=== PATIENT | male | born 1950 | race Caucasian/White ===

== ENCOUNTER 2018-10-01 02:08 | Inpatient (IN) | payer OTHER ==
[~2018-10-01] VITALS: Ht 195.6 cm; Wt 102.5 kg
[2018-10-01] VITALS (7 sets, daily range): BP systolic 115–161; BP diastolic 76–93
--- NOTE | ~2018-10-01 | O ---
[facility] [address] [place] [address] OPERATIVE REPORT Name: ANTWAN SERRANO Room #: 247-P ADM IN M.R.#: [id number] Admission: 10/01/18 ������������������ Attend Phys: Forrest Valdes MD Discharge: ������������������ Date of : 54 Report #: [id number] THIS REPORT FOR: //name// CC: Brijesh Valdes DATE OF SERVICE: 10/03/2018 PREOPERATIVE DIAGNOSIS: Coronary artery disease. POSTOPERATIVE DIAGNOSIS: Coronary artery disease. OPERATION: Coronary artery bypass x 3 including left internal mammary artery to left anterior descending artery, saphenous vein to ramus intermedius, and saphenous vein to posterior descending artery (distal branch of circumflex) and endoscopic harvest, left greater saphenous vein. SURGEON: Toby Olguin M.D. FLOW FLOOR ATTENDANT: TYRESE Saenz. ANESTHESIA: General. INDICATIONS: The patient is a 67-year-old with unstable angina. The patient has a history of stent placement in the left anterior descending. The current catheterization shows restenosis with a tight ostial LAD lesion. There is also moderate stenosis in the mid circumflex and the circumflex is left dominant. The ramus intermedius has an ostial lesion in it as well that appears significant. Left ventricular function is reduced with apical and anterior akinesis. This may be related to stunned myocardium. In some of the views, the flow through the LAD is ZAK 2. FINDINGS AND TECHNIQUE: After general anesthesia was established, left greater saphenous vein was harvested using an endoscopic approach and prepared for use as a conduit. Exposure was obtained through median sternotomy. Left internal mammary artery was harvested from chest wall. Pericardial well was made. Cannulation sutures were placed. Heparin was given. Aorta was cannulated. Right atrium was cannulated. Cardioplegia needle was positioned in the aortic root. Retrograde cardioplegic catheter was placed in coronary sinus. Cardiopulmonary bypass was established. Aorta was cross-clamped, antegrade, then retrograde, cardioplegia were given. Ice was poured into the pericardial well. The heart was stopped. During electromechanical arrest, the distal anastomoses were performed and [facility] [address] [place] [address] OPERATIVE REPORT Name: ANTWAN SERRANO Room #: 247-P ADM IN M.R.#: [id number] Admission: 10/01/18 ������������������ Attend Phys: Forrest Valdes MD Discharge: ������������������ Date of : 54 Report #: [id number] end-to-side anastomosis was made between vein and the posterior descending artery. This was a distal branch of the left dominant circumflex. This was a 1.6 mm vessel. Cold cardioplegia was given. Separate segment of vein was sewn in end-to-side fashion to the ramus intermedius. This was an intramyocardial vessel that measured 1.5 mm. Cold cardioplegia was given. Left internal mammary artery was sewn in end-to-side fashion to the left anterior descending artery. Patency of this vessel was checked with the temperature technique. Cold cardioplegia was given. Two proximal anastomoses were performed. When these were complete, warm retrograde cardioplegia was given followed by warm continuous blood through the coronary sinus. When this infusion was complete, the cross-clamp was removed, de-airing maneuvers were performed. The anastomoses were inspected and found to be satisfactory. As the patient warmed, nice cardiac activity resumed. Chest tubes and pacing wires were placed. A marker was placed around the proximal anastomoses. When the patient was warmed, he was weaned from cardiopulmonary bypass. Venous cannula was removed. Protamine was given. The aortic cannula was removed. When hemostasis was satisfactory, the chest was closed in the usual fashion. The patient was taken to the intensive care unit in satisfactory condition. All counts were reported as correct. ��������������������������������������������� ���������������������������������������� By: ��������������������������������������������� 1445 1905 Toby Olguin MD /nt
[~2018-10-01 02:08] MED LIST: ADULT LOW DOSE81 MG PO; HYDROCHLOROTH12.5 MG PO; LIPITOR40 MG PO; NIASPAN ER 101000 M1 PO; TOPROL XL50 MG PO
[2018-10-01 02:25] LABS: ABSOLUTE NEUTROPHILS 6.2 thou/uL (1.4-8.2); BASOPHILS 0.7 % (0.0-2.0); EOSINOPHILS 2.5 % (0.0-3.0); HEMATOCRIT 40.6 % (42.0-52.0); HEMOGLOBIN 14.1 gm/dL (14.0-18.0); LYMPHOCYTES 39.1 % (24.0-44.0); MCH 30.2 pg (26.0-34.0); MCHC 34.6 g/dL (28.0-37.0); MCV 87.4 fL (80.0-100.0); PLATELET COUNT 228 thou/uL (150-400); POLYS 48.7 % (36.0-66.0); RBC 4.65 mil/uL (4.50-6.00); RDW 12.9 % (10.5-14.5); WBC 12.8 thou/uL (4.0-11.0)
[2018-10-01] MEDS ORDERED: LOSARTAN-HCTZ1 EACH PO (02:28)
[2018-10-01] MEDS ORDERED: PRADAXA150 MG PO (02:29)
[2018-10-01] MEDS ORDERED: RANEXA500 MG PO (02:29)
[2018-10-01] MEDS ORDERED: MULTAQ 400 MG400 MG PO (02:30)
[2018-10-01 02:31] LABS: ANION GAP 9 mmol/L (7-16); BUN 16 mg/dL (7-18); CALCIUM 8.1 mg/dL (8.5-10.1); CHLORIDE 106 mmol/L (98-107); CO2 24 mmol/L (21-32); CREATININE 0.9 mg/dL (0.7-1.3); GLUCOSE 195 mg/dL (74-106); POTASSIUM 3.3 mmol/L (3.5-5.1); SODIUM 139 mmol/L (136-145)
[2018-10-01 02:39] LABS: APTT 34.2 Seconds (24.5-32.8); INR 1.1; PROTIME 11.4 Seconds (9.3-11.4)
[2018-10-01 02:40] LABS: ALBUMIN 3.7 g/dL (3.4-5.0); MAGNESIUM 1.4 mg/dL (1.8-2.4); SGOT 14 U/L (15-37); SGPT 26 U/L (30-65); TOTAL BILIRUBIN 0.5 mg/dL (<0.1-1.0); TOTAL PROTEIN 6.3 g/dL (6.4-8.2); TROPONIN-I <0.06 ng/mL (<0.06)
--- NOTE | 2018-10-01 06:24 | NUR ---
PT ARRRIVED FROM ER TO UNIT AROUND 0508, VSS. PT A&OX4, ACCOMPANIED BY HIS . PT IS STABLE REPORTED HX OF VERITIGO AND RECENT TROUBLE STAYING ASLEEP. PT DENIES CHEST PAIN AT THIS TIME, PT IS SA ON THE MONITOR WITH HR IN THE 70s. IV FLUIDS CURRENTLY RUNNING AND POTASSIUM REPLACED ORDERED. WILL CONTINUE TO MONITOR
--- NOTE | 2018-10-01 08:08 | EKG ---
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: [employer] : 1950 Requested By: Blaine Koch Order Number: [id number] MD: Santiago Shetty Measurements Intervals [place] Rate: 78 P: GA: QRS: 71 QRSD: 115 T: 37 QT: 407 QTc: 464 Interpretive Statements Atrial fibrillation Compared to ECG 09/02/2011 01:16:24 Heart rate has slowed ST (T wave) deviation no longer present Electronically Signed On 10-01-2018 8:08:36 CDT by Santiago Shetty [email or web address] ��������������������������������������������� <ELECTRONICALLY SIGNED> ���������������������������������������� By: Santiago Shetty MD, [facility] ��������������������������������������������� 10/01/18 0808 0 0 Santiago Shetty MD, FAC /EPI
--- NOTE | 2018-10-01 09:41 | 2DMMODE ---
[facility] [address] [place] [address] 2 D/M-MODE ECHOCARDIOGRAM Name: ANTWAN SERRANO Room #: 218-P ADM IN M.R.#: [id number] ������������� Admission: 10/01/18 ������������� Attend Phys: Forrest Valdes MD Discharge: ��� ������������� ��� Date of : 54 Date of Service: 10/01/18 0941 �� Report #: [id number] �������� ��������������������������������������������[id number] THIS REPORT FOR: //name// APPROVED REPORT Study performed: 10/01/2018 08:49:58 EXAM: Comprehensive 2D, Doppler, and color-flow Echocardiogram Patient Location: Echo lab Room #: 218 Status: routine BSA: 2.32 HR: 80 bpm BP: 149/77 mmHg Rhythm: Atrial Fibrillation Other Information Study Quality: Good Risk Factors: Cardiac Risk Factors: Hyperlipidemia Indications Diabetes Atrial Fibrillation CAD Hypertension/HDD 2D Dimensions RVDd: 33.81 mm IVSd: 10.83 (7-11mm) LVOT Diam: 20.76 (18-24mm) LVDd: 47.38 mm PWd: 11.17 (7-11mm) Ascending Ao: 30.69 (22-36mm) LVDs: 29.27 (25-40mm) Aortic Root: 35.78 mm IVC: 26.00 mm Volumes Left Atrial Volume (Systole) Single Plane 4CH: 62.34 mL Single Plane 2CH: 55.59 mL LA ESV Index: 30.00 mL/m2 Aortic Valve AoV Peak Jaydon.: 0.99 m/s AO Peak Gr.: 3.95 mmHg LVOT Max P.96 mmHg LVOT Max V: 0.86 m/s [facility] [email or web address] [address] 2 D/M-MODE [facility]OCARDIOGRAM [facility] Room #: 218-P ADM IN [place].#: [id number] ������������� Admission: 10/01/18 ������������� Attend Phys: Forrest Valdes MD Discharge: ��� ������������� ��� Date of : 54 Date of Service: 10/01/18 0941 �� Report #: [id number] �������� ��������������������������������������������[id number] THADDEUS Vmax: 2.93 cm2 Pulmonary Valve PV Peak Jaydon.: 0.96 m/s PV Peak Gr.: 3.79 mmHg Tricuspid Valve TR Peak Jaydon.: 2.64 m/s TR Peak Gr.: 27.95 mmHg PA Pressure: 38.00 mmHg Left Ventricle The left ventricle is normal size. There is hypokinesis in the apical wall. There is normal left ventricular wall thickness. Left ventricular systolic function is mildly decreased. LVEF is 45%. This study is not technically sufficient to allow evaluation of the LV diastolic function due to atrial fibrillation. Right Ventricle The right ventricle is normal size. The right ventricular systolic function is normal. Atria Left atrium is at the upper limits of normal. Right atrium is dilated. Aortic Valve The aortic valve is normal in structure. No aortic regurgitation is present. There is no aortic valvular stenosis. Mitral Valve The mitral valve is normal in structure. Mild mitral regurgitation. No evidence of mitral valve stenosis. Tricuspid Valve The tricuspid valve is normal in structure. There is mild tricuspid regurgitation. Estimated PAP 38 mmHg. There is mild pulmonary hypertension. Pulmonic Valve The pulmonary valve is normal in structure. Trace pulmonic regurgitation. Great Vessels The aortic root is normal in size. IVC is dilated and collapses <50% with inspiration. [facility] [email or web address] [address] 2 D/M-MODE ECHOCARDIOGRAM Name: [facility] Room #: 218-P ADM IN M.R.#: [id number] ������������� Admission: 10/01/18 ������������� Attend Phys: Forrest Valdes MD Discharge: ��� ������������� ��� Date of : 54 Date of Service: 10/01/18940 �� Report #: [id number] �������� ��������������������������������������������[id number] Pericardium There is no pericardial effusion. <Conclusion> The left ventricle is normal size. There is normal left ventricular wall thickness. Left ventricular systolic function is mildly decreased. LVEF is 45%. There is hypokinesis in the apical wall. The right ventricle is normal size. Left atrium is at the upper limits of normal. The aortic valve is normal in structure. Mild mitral regurgitation. There is mild tricuspid regurgitation. Estimated PAP 38 mmHg. ��������������������������������������������� <ELECTRONICALLY SIGNED> ���������������������������������������� By: Keon Lara MD ��������������������������������������������� 10/01/18940 0 0 Keon Lara MD /LELA
--- NOTE | 2018-10-01 13:19 | NUR ---
ASSESSMENT DOCUMENTED. VSS. CRITICAL TROP LEVELS CALLED TO DR. CLARKE TO HAVE CARDIAC CATH TOMORROW R/T PRADAXA. NO PAIN/CHEST PAIN REPORTED BY PT. PT RESTING IN BED WITH CALL LIGHT IN REACH. WILL CONTINUE TO MONITOR.
--- NOTE | 2018-10-01 15:35 | NUR ---
patient admits with chest pain. Chart reviewed sp with nursing. 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 Patient with at bedside. 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 Patient has health insurance. Casemgt following for dc planning.
--- NOTE | 2018-10-02 04:24 | NUR ---
ASSUMED PT CARE AT 1900. VSS. PT A&OX4 NO COMPLAINTS OF PAIN OR ANY KIND OF DISCOMFORT. PT REQUESTED FOR AN ATIVAN THIS NIGHT HE WAS HAVING TROUBLE SLEEPING. HE STATED THAT HE USES THIS MED ONLY A COUPLE TIMES A MONTH FOR SLEEP. PT RESTED WELL FOR THE REST OF THE NIGHT, HE HAS BEEN NPO SINCE MIDNIGHT IN PREP FOR HIS PROCEDURE, HE IS SR WITH A 1ST DEGREE ON THE MONITOR, PT IS STABLE, WILL CONTINUE TO MONITOR.
[2018-10-02 05:00] LABS: CALCIUM 8.7 mg/dL (8.5-10.1); CREATININE 0.9 mg/dL (0.7-1.3); POTASSIUM 4.3 mmol/L (3.5-5.1)
[2018-10-02 05:03] VITALS: BP 124/84
[2018-10-02 05:04] LABS: HEMATOCRIT 38.9 % (42.0-52.0); HEMOGLOBIN 13.4 gm/dL (14.0-18.0); MCH 30.1 pg (26.0-34.0); MCHC 34.4 g/dL (28.0-37.0); MCV 87.5 fL (80.0-100.0); RBC 4.44 mil/uL (4.50-6.00); RDW 12.9 % (10.5-14.5)
[2018-10-02 09:12] VITALS: BP 125/75
[2018-10-02 09:15] VITALS: BP 125/71
[2018-10-02 11:12] VITALS: BP 139/76
[2018-10-02 13:02] LABS: AMP/METHAMP Negative (Negative); BARBITURATES Negative (Negative); BENZODIAZEPINES POSITIVE (Negative); COCAINE Negative (Negative); METHADONE Negative (Negative); OPIATES Negative (Negative); PCP Negative (Negative)
--- NOTE | 2018-10-02 14:55 | NUR ---
Pt had cath this am and recommendations for CABG noted. Surgery possible tomorrow. Will follow along and reassess postop for any dc planning needs.
--- NOTE | 2018-10-02 15:49 | CATHLAB ---
[facility] [address] [place] [address] INVASIVE PROCEDURE REPORT Name: ANTWAN SERRANO Room #: 218-P ADM IN M.R.#: [id number] ������������� Admission: 10/01/18 ������������� Attend Phys: Forrest Valdes MD Discharge: ��� ������������� ��� Date of : 54 Date of Service: 10/02/18 1548 �� Report #: [id number] �������� ��������������������������������������������[id number] THIS REPORT FOR: //name// APPROVED REPORT Study performed: 10/02/2018 07:36:04 Patient Details Patient Status: In-Patient Room #: The patient is a 67 year-old male Event Personnel Keon Lara Car Unloader Helper, Juan Eng RN RN, Viviane Samaniego RT(R)() Lj Zarate Valisa Monitor, Peña Cloud Monitor Procedures Performed Left Heart CathArt Access - R radial artery Indication Non-STEMI , Atrial fibrillation, Dyspnea, Chest pain Risk Factors Hypercholesterolemia, Coronary Artery DiseaseHypertension Procedure Narrative The patient was brought electively to the Cardiac Catheterization Laboratory and was prepped and draped in a sterile manner. The Right Wrist^ was infiltrated with 1% Lidocaine subcutaneous anesthesia. A TRANSRADIAL SLENDER 6F GLIDESHEATH KIT #[id number] sheath was inserted into the Right Radial Artery^. Coronary angiography was performed using coronary diagnostic catheters. The right coronary system was accessed and visualized with a 5FR JL 3.5 #[id number] JR 4 #[id number] catheter. The left coronary system was accessed and visualized with a 5FR JL 3.5 #[id number] catheter. The left ventricle was accessed and visualized with a 5FR PIG 145 ANGLED #[id number] catheter. Left ventricular/Aortic Valve gradient assessed via catheter pullback. Left ventriculogram was performed in PEDRAZA projection. Closure device was deployed with a Fr VASC BAND R 24CM #[id number]. The patient tolerated the procedure well and there were no complications associated with the procedure. There was no hematoma. Intraoperative Conscious Sedation Sedation start time: 807 Case end Time: 837 [facility] [address] [place] [address] INVASIVE PROCEDURE REPORT Name: [facility] Room #: 218-P [facility].#: [id number] ������������� Admission: 10/01/18 ������������� Attend Phys: Forrest Valdes MD Discharge: ��� ������������� ��� Date of : 54 Date of Service: 10/02/18 1548 �� Report #: [id number] �������� ��������������������������������������������[id number] Fentanyl 50 mcg Versed 1 mg Fluoro Time: 5.03 minutes Dose: DAP 6071.60 cGycm2 608 mGy Contrast Type and Amount: Visipaque 100 ml Coronary Angiography The patient's coronary anatomy is left dominant. Diagnostic Cath Left Main This is a large caliber vessel, patent with no flow-limiting lesions. LAD There are 2 overlapping stents in the proximal/ostial LAD with severe restenosis, at least 95%. There is ZAK 2 blood flow down the apical LAD. Circumflex This is a dominant vessel with a severe occlusion in the mid segment, 75%. OM1 This branch has a high takeoff from the left circumflex artery, with a severe occlusion at the ostium, 80%. OM2 This is a moderate size caliber vessel with a moderate stenosis proximally, 50%. OM3 This is a patent vessel, with no flow-limiting lesions. L PDA This is a patent vessel, with no flow-limiting lesions. Right Coronary This is a small, nondominant vessel with mild disease. Left Ventriculography The left ventricle is normal in size with decreased contractility. The left ventricular ejection fraction is estimated to be 40%. There is hypokinesis of the mid to apical anterior wall. Hemodynamics The aortic pressure is 146/90 mmHg with a mean of mmHg. The left ventricular pressure is 142/23 mmHg with a mean of mmHg. The left ventricular end diastolic pressure is 35 mmHg. Conclusion 1. Severe, restenotic lesion involving the ostial/proximal LAD stent. 2. Left dominant system with severe occlusion in the left circumflex artery. [facility] [address] [place] [address] INVASIVE PROCEDURE REPORT [facility] Room #: 218-P [facility] IN M.R.#: [id number] ������������� Admission: 10/01/18 ������������� Attend Phys: Forrest Valdes MD Discharge: ��� ������������� ��� Date of : 54 Date of Service: 10/02/18 1548 �� Report #: [id number] �������� ��������������������������������������������[id number] 3. Moderate segmental LV dysfunction. 4. Recommend CV surgery consultation. ��������������������������������������������� <ELECTRONICALLY SIGNED> ���������������������������������������� By: Keon Lara MD ��������������������������������������������� 10/02/18 1548 1548 1548 Keon Lara MD /INF
--- NOTE | 2018-10-02 20:20 | NUR ---
ASSUMED CARE OF PATIENT AT 0700. ASSESSMENT CHARTED. PATIENT WENT FOR CARDIAC CATH THIS MORNING, HOWEVER NO INTERVENTIONS WERE DONE. PATIENT HAS A RIGHT RADIAL SITE WITH BAND IN PLACE. PROTOCOL FOLLOWED AND FLOW SHEET IS IN THE CHART. PATIENT DENIES ANY PAIN. PATIENT'S AND MULTIPLE FAMILY MEMBERS ARE AT THE BEDSIDE. PATIENT HAS SPOKEN WITH DR. GIORDANO AND IS ON THE SCHEDULE TOMORROW FOR CABG. PREOPERATIVE TESTING HAS TAKEN PLACE TODAY. CONSENT HAS BEEN SIGNED. CONTINUE WITH POC.
[2018-10-02 20:26] VITALS: BP 132/78
[2018-10-03] VITALS (13 sets, daily range): BP systolic 101–151; BP diastolic 53–88
[2018-10-03 00:09] LABS: GLYCOHEMOGLOBIN (HGB A1C) 7.3 % (4.8-5.6)
[2018-10-03 05:13] LABS: HEMATOCRIT 39.3 % (42.0-52.0); HEMOGLOBIN 13.5 gm/dL (14.0-18.0); MCHC 34.4 g/dL (28.0-37.0); MCV 87.3 fL (80.0-100.0); RBC 4.5 mil/uL (4.50-6.00); WBC 19.5 thou/uL (4.0-11.0)
[2018-10-03 05:27] LABS: POTASSIUM 4.2 mmol/L (3.5-5.1)
--- NOTE | 2018-10-03 06:23 | NUR ---
ASSUMED PT CARE AT 1900 WITH REPORT TAKEN, PT IS ALERT AND ORIENTED WITH NO SIGN OF DISTRESS NOTED IN PT AND FAMILY AT BEDSIDE. SCHEDULED MEDS ADMINISTERED TO PT. AT THE BEGINNING OG THE SHIFT, PT WAS CONCERNED ABOUT SCHEDULED CABG AND DIDNT KNOW IF IT WAS GOING TO TAkE PLACE, TIME OF PROCEDURE WAS CONFIRMED AND PT NOTIFIED. DR OAKES VISITED THE PATIENT. PRE-OP CHECKOFF COMPLETED. NO SIGN OF DISTRESS NOTED THROUGH OUT THE NIGHT. VITAL SIGNS STABLE. HEART RHYTHM STABLE. NO NO FURTHER NEEDS AT THIS TIME.
[2018-10-03 11:41] LABS: URINE BILIRUBIN NEGATIVE (Negative); URINE BLOOD NEGATIVE (Negative); URINE CLARITY CLEAR; URINE COLOR YELLOW; URINE GLUCOSE-RANDOM* 2+ (Negative); URINE KETONES NEGATIVE (Negative); URINE LEUKOCYTES-REFLEX NEGATIVE (Negative); URINE NITRITE-REFLEX NEGATIVE (Negative); URINE PROTEIN (DIPSTICK) NEGATIVE (Negative); URINE UROBILINOGEN 0.2 E.U./dl (0.2-1.0)
[2018-10-03 12:49] LABS: MCH 29.8 pg (26.0-34.0); MCHC 34.1 g/dL (28.0-37.0); MCV 87.5 fL (80.0-100.0); RBC 3.05 mil/uL (4.50-6.00); RDW 12.7 % (10.5-14.5); WBC 19.4 thou/uL (4.0-11.0)
[2018-10-03 12:57] LABS: HEMOGLOBIN 9.1 gm/dL (14.0-18.0)
[2018-10-03 12:58] LABS: HEMATOCRIT 26.7 % (42.0-52.0)
[2018-10-03 13:06] LABS: APTT 25.8 Seconds (24.5-32.8); PROTIME 16.1 Seconds (9.3-11.4)
[2018-10-03 13:08] LABS: FIBRINOGEN 136.3 mg/dL (210-360); INR 1.5
[2018-10-03 13:39] LABS: POC BE -4 mmol/L (-2.0 to +3.0); POC CA IONIZED 4.9 mg/dL (4.5-5.3); POC GLUCOSE 184 mg/dL (70-99); POC HCO3 21.3 mmol/L (22.0-26.0); POC HEMOGLOBIN 9.2 g/dL (14.0-18.0); POC POTASSIUM 3.7 mmol/L (3.5-5.1); POC SODIUM 142 mmol/L (136-145); POC pCO2 34.4 mmHg (35.0-45.0); POC pH 7.399 (7.360-7.450)
[2018-10-03 13:39] LABS: POC BE -3 mmol/L (-2.0 to +3.0); POC CA IONIZED 5.5 mg/dL (4.5-5.3); POC GLUCOSE 209 mg/dL (70-99); POC HCO3 21.6 mmol/L (22.0-26.0); POC HEMOGLOBIN 8.8 g/dL (14.0-18.0); POC POTASSIUM 4.1 mmol/L (3.5-5.1); POC SODIUM 140 mmol/L (136-145); POC pCO2 33.9 mmHg (35.0-45.0); POC pH 7.413 (7.360-7.450)
[2018-10-03 13:39] LABS: POC BE 0 mmol/L (-2.0 to +3.0); POC CA IONIZED 4.4 mg/dL (4.5-5.3); POC GLUCOSE 198 mg/dL (70-99); POC HCO3 24.3 mmol/L (22.0-26.0); POC HEMOGLOBIN 10.2 g/dL (14.0-18.0); POC POTASSIUM 4.5 mmol/L (3.5-5.1); POC SODIUM 138 mmol/L (136-145); POC pCO2 37.5 mmHg (35.0-45.0); POC pH 7.419 (7.360-7.450)
[2018-10-03 13:39] LABS: POC BE -1 mmol/L (-2.0 to +3.0); POC CA IONIZED 4.9 mg/dL (4.5-5.3); POC GLUCOSE 230 mg/dL (70-99); POC HCO3 24.5 mmol/L (22.0-26.0); POC HEMOGLOBIN 11.9 g/dL (14.0-18.0); POC POTASSIUM 4.3 mmol/L (3.5-5.1); POC SODIUM 137 mmol/L (136-145); POC pCO2 40.7 mmHg (35.0-45.0); POC pH 7.386 (7.360-7.450)
[2018-10-03 13:39] LABS: POC BE -2 mmol/L (-2.0 to +3.0); POC CA IONIZED 4.9 mg/dL (4.5-5.3); POC GLUCOSE 213 mg/dL (70-99); POC HCO3 23.1 mmol/L (22.0-26.0); POC HEMOGLOBIN 11.2 g/dL (14.0-18.0); POC SODIUM 138 mmol/L (136-145); POC pH 7.392 (7.360-7.450)
[2018-10-03 13:39] LABS: POC BE -1 mmol/L (-2.0 to +3.0); POC CA IONIZED 4.7 mg/dL (4.5-5.3); POC GLUCOSE 196 mg/dL (70-99); POC HCO3 23.9 mmol/L (22.0-26.0); POC HEMOGLOBIN 9.5 g/dL (14.0-18.0); POC POTASSIUM 4.2 mmol/L (3.5-5.1); POC SODIUM 140 mmol/L (136-145); POC pCO2 40.2 mmHg (35.0-45.0); POC pH 7.382 (7.360-7.450)
[2018-10-03 13:39] LABS: POC BE -1 mmol/L (-2.0 to +3.0); POC CA IONIZED 4.6 mg/dL (4.5-5.3); POC GLUCOSE 207 mg/dL (70-99); POC HCO3 24.8 mmol/L (22.0-26.0); POC HEMOGLOBIN 9.2 g/dL (14.0-18.0); POC POTASSIUM 4.9 mmol/L (3.5-5.1); POC SODIUM 140 mmol/L (136-145); POC pCO2 43.7 mmHg (35.0-45.0); POC pH 7.362 (7.360-7.450)
--- NOTE | 2018-10-03 13:44 | NUR ---
Pt had CABGx3 this am and then transfered to the ICU. Will follow along for dc planning needs pending his progress.
[2018-10-03 14:13] LABS: BE(vivo) -4.5 mmol/L (-2 to +3); HCO3 20.8 mmol/L (22.0-26.0); PCO2 38.9 mmHg (35.0-45.0); PO2 166.7 mmHg (80.0-100.0); pH 7.345 (7.360-7.450)
[2018-10-03 14:24] LABS: HEMOGLOBIN 9.7 gm/dL (14.0-18.0); MCH 30.3 pg (26.0-34.0); MCHC 34.7 g/dL (28.0-37.0); MCV 87.2 fL (80.0-100.0); RBC 3.22 mil/uL (4.50-6.00); RDW 12.7 % (10.5-14.5); WBC 22.1 thou/uL (4.0-11.0)
[2018-10-03 14:37] LABS: CALCIUM 8.3 mg/dL (8.5-10.1); CREATININE 0.9 mg/dL (0.7-1.3); MAGNESIUM 1.9 mg/dL (1.8-2.4); POTASSIUM 3.7 mmol/L (3.5-5.1)
[2018-10-03 14:39] LABS: APTT 27.9 Seconds (24.5-32.8); INR 1.3; PROTIME 13.3 Seconds (9.3-11.4)
[2018-10-03 16:42] LABS: BE(vivo) -5.2 mmol/L (-2 to +3); HCO3 18.6 mmol/L (22.0-26.0); PCO2 29.8 mmHg (35.0-45.0); PO2 127.9 mmHg (80.0-100.0); pH 7.412 (7.360-7.450); sO2 98.6 % (92.0-98.0)
--- NOTE | 2018-10-03 17:20 | EKG ---
[address] [address] ELECTROCARDIOGRAM REPORT Name: ANTWAN SERRANO Room #: 247-P ADM IN M.R.#: [id number] ������������������ Admission: 10/01/18 ������������������ Attend Phys: Forrest Valdes MD Discharge: ������������������ Date of : 54 Report #: [id number] ����������������������������������������������������������������� [id number] THIS REPORT FOR: //name// [facility] Test Date: 2018-10-03 Test Time: 15:22:05 Pat Name: ANTWAN [facility] Department: Room: [facility] Gender: Dyer Helper: Louis HILL : 1950 Requested By: Rocael Garcia Order Number: [id number] MD: Santiago Shetty Measurements Intervals [place] Rate: 96 P: 71 CO: 187 QRS: 66 QRSD: 107 T: 75 QT: 380 QTc: 481 Interpretive Statements Sinus tachycardia Frequent premature ventricular complexes Nonspecific ST and T wave abnormality Borderline prolonged QT interval Compared to ECG 10/01/2018 02:11:49 Ventricular premature complex(es) now present Atrial fibrillation no longer present Electronically Signed On 10-03-2018 17:20:07 CDT by Santiago Shetty [email or web address] ��������������������������������������������� <ELECTRONICALLY SIGNED> ���������������������������������������� By: Santiago Shetty MD, FACC ��������������������������������������������� 10/03/18 1720 1522 1522 Santiago Shetty MD, [facility] /EPI
--- NOTE | 2018-10-03 20:05 | NUR ---
UT ARRIVED FROM OR AT 1350. ANEESTARDA, DR GIORDANO AND PERRY AT BEDSIDE. VIGILANCE 2 NOT WORKING, CHANGED OUT MONITOR. LABS AND ABG COLLECTED. LEVO, DOBUTAMINE, INSULIN GTT. 2 ALBUMIN GIVEN TO SUPPLEMENT BP. FAMILY UPDATED AND WENT HOME.
[2018-10-04] VITALS (14 sets, daily range): BP systolic 93–120; BP diastolic 36–63
[2018-10-04 03:09] LABS: T4 (THYROXINE) 4.9 ug/dL (4.5-12.0)
[2018-10-04 06:02] LABS: HEMATOCRIT 25.9 % (42.0-52.0); MCH 30.3 pg (26.0-34.0); MCHC 34.9 g/dL (28.0-37.0); RBC 2.98 mil/uL (4.50-6.00); WBC 17.5 thou/uL (4.0-11.0)
[2018-10-04 06:13] LABS: CALCIUM 8.4 mg/dL (8.5-10.1); CREATININE 0.9 mg/dL (0.7-1.3); POTASSIUM 3.9 mmol/L (3.5-5.1)
--- NOTE | 2018-10-04 06:47 | NUR ---
Pt progressing well and up to the chair this am without difficulty. PRN fentanyl and hydrocodones given for c/o chest "soreness" with desired effects achieved. Remains on low dose levophed gtt for BP maintenance and HR stable. SpO2 adequate on 2L of O2 and urine output adequate for shift. Taking PO with no c/o nausea. Am lab results noted, continue with POC.
--- NOTE | 2018-10-04 19:15 | NUR ---
PT PROGRESSED TODAY! INCISIONAL/L PCT CHEST DISCOMFORT IMPROVING WITH PO PAIN MEDS. PT MOTIVATED, TAKING DEEP BREATHS/COUGH OR USING INCENTIVE SPIROMETER WHILE SPLINTING CHEST AT LEAST 1 HOUR X 10. AFIB/AFLUTTER/SB AND RUN OF VTACH AFTER AMIODARONE GTT DC'D WHILE MULTAQ TAKING EFFECT. VTACH RESOLVED SPONTANEOUSLY, PT ASYMPTOMATIC. LEVO TITRATED OFF, INSULIN GTT, DAVID, SWAN AND MCT'S DC'D- ALL WELL TOLERATED. PCT REMAINS INTACT, ROOM AIR. TOOK A FEW BITES OF FOOD FOR LUNCH, THEN ABOUT 1/3 OF HIS EVENING MEAL. TOLERATING WATER VERY WELL. ALBUMIN 250CC GIVEN X 2 FOR MARGINAL BP AND MARGINAL URINE OUTPUT WITH IMPROVEMENT. TRUJILLO WITH ADEQUATE URINE OUTPUT. , SON AND FRIEND AT BEDSIDE INTERMITTENTLY DURING SHIFT- ALL PROVIDED SUPPORT.
[2018-10-05] VITALS (22 sets, daily range): BP systolic 91–128; BP diastolic 42–75
--- NOTE | 2018-10-05 04:27 | NUR ---
ASSUMED PT CARE AT 1900. VSS. PT A&0X4. PT COMPLAINED OF PAIN, HYDROCODONE BEING ADMINISTERED Q4 AND PER PT'S REQUEST. PT IS DOING VERY WELL POST OP DAY 2. HE IS ABLE TO PULL HIS IS TO 1000, HE GOT UP TO THE CHAIR WITH 2 ASSIST AROUND 3AM & HE BRUSHED HIS TEETH BY HIMSELF. HE HAS GOOD URINE OUTPUT AND ABOUT 80ML OUT FROM HIS CHEST TUBE AT THIS TIME. PT HAS A HX OF TROUBLE SLEEPING SO A ONETIME ORDER OF PO ATIVAN WAS ADMINISTERED AND PT SLEPT BETTER AFTER TAKING THE MEDICINE. PT IS STABLE. NO COMPLAINTS OF DISTRESS, ALL DRESSING ARE CDI. WILL CONTINUE TO MONITOR PER POC.
[2018-10-05 05:39] LABS: HEMATOCRIT 24.5 % (42.0-52.0); HEMOGLOBIN 8.4 gm/dL (14.0-18.0); MCHC 34.2 g/dL (28.0-37.0); MCV 87.9 fL (80.0-100.0); RBC 2.79 mil/uL (4.50-6.00); RDW 12.9 % (10.5-14.5); WBC 14.4 thou/uL (4.0-11.0)
[2018-10-05 05:46] LABS: CREATININE 0.9 mg/dL (0.7-1.3); POTASSIUM 3.8 mmol/L (3.5-5.1)
--- NOTE | 2018-10-05 11:43 | EKG ---
[facility] [address] [address] ELECTROCARDIOGRAM REPORT Name: ANTWAN SERRANO Room #: 247-P ADM IN M.R.#: [id number] ������������������ Admission: 10/01/18 ������������������ Attend Phys: Forrest Valdes MD Discharge: ������������������ Date of : 54 Report #: [id number] ����������������������������������������������������������������� [id number] THIS REPORT FOR: //name// [facility] Test Date: 2018-10-04 Test Time: 06:43:14 Pat Name: [facility] Department: Room: 247 P Gender: M Inventory Taker: . : 1950 Requested By: Rocael Garcia Order Number: [id number] MD: Santiago Shetty Measurements Intervals [place] Rate: 81 P: [place]: QRS: 52 QRSD: 101 T: 105 QT: 375 QTc: 436 Interpretive Statements Atrial fibrillation Nonspecific ST and T wave abnormality Compared to ECG 10/03/2018 15:22:05 Sinus tachycardia no longer present Ventricular premature complex(es) no longer present Electronically Signed On 10-05-2018 11:43:14 CDT by Santiago Shetty [email or web address] ��������������������������������������������� <ELECTRONICALLY SIGNED> ���������������������������������������� By: Santiago Shetty MD, [facility] ��������������������������������������������� 10/05/18 1143 Santiago Shetty MD, [facility] /EPI
--- NOTE | 2018-10-05 13:00 | NUR ---
UP IN CHAIR ALL MORNING & INTERMITTENTLY HIS POSITION IN CHANGED WHILE IN THE CHAIR, PLACING CHAIR IN RECLINING POSITION, ELEVATING LOWER EXTREMITIES ON PILLOWS AND ASSISTED TO STAND, TAKING STEPS IN PLACE. HYDROCODONE IMPROVING DISCOMFORT LEVEL, AFIB/FLUTTER, SAO2 82%- PLACED ON 2L/NC, PULLING 1,000-1,500 ON INCENTIVE SPIROMETER, AMBULATED IN AROUND DESK AT NURSING STATION WHILE ON 2L/NC, WELL TOLERATED. TOLERATING MEALS, TRUJILLO WITH ADEQUATE URINE OUTPUT. AND SON PRESENT, PROVIDING SUPPORT. PT PROGRESSING.
--- NOTE | 2018-10-05 15:30 | NUR ---
PACING WIRE/L PCT REMOVED BY DR. GUNTER, INTRODUCER DC'D, TRUJILLO DC'D. ALL WELL TOLERATED.
[2018-10-06] VITALS (17 sets, daily range): BP systolic 107–161; BP diastolic 51–73
--- NOTE | 2018-10-06 07:16 | NUR ---
PT IS ORIENTED AND PLEASANT, VITALS WNL, MOSTLY A FLUTTER ON THE MONITOR, WITH EPISODES IN NORMAL SINUS RHYTHM. PAIN WELL CONTROLLED, TOLERATING ACTIVITY FAIRLY. ADEQUATE URINE OUTPUT, NO BM. KHAI DRESSING CLEAN DRY INTACT.
--- NOTE | 2018-10-06 08:53 | EKG ---
[address] [address] ELECTROCARDIOGRAM REPORT Name: ANTWAN SERRANO Room #: 247-P ADM IN M.R.#: [id number] ������������������ Admission: 10/01/18 ������������������ Attend Phys: Forrest Valdes MD Discharge: ������������������ Date of : 54 Report #: [id number] ����������������������������������������������������������������� [id number] THIS REPORT FOR: //name// [facility] Test Date: 2018-10-06 Test Time: 08:36:40 Pat Name: ANTWAN SERRANO Department: Room: 247 P Gender: M Appraisal Coordinator: MANJEET : 1950 Requested By: Symone Ramirez Order Number: [id number] MD: Santiago Shetty Measurements Intervals [place] Rate: 77 P: 103 MI: 188 QRS: 125 QRSD: 90 T: QT: 534 QTc: 605 Interpretive Statements Sinus rhythm Anterolateral infarct, age indeterminate Compared to ECG 10/04/2018 06:43:14 sinus rhythm has replaced atrial fibrillation criteria for anterolateral infarct now present Electronically Signed On 10-06-2018 8:53:11 CDT by Santiago Shetty [email or web address] ��������������������������������������������� <ELECTRONICALLY SIGNED> ���������������������������������������� By: Santiago Shetty MD, [facility] ��������������������������������������������� 10/06/18 0853 Santiago Shetty MD, [facility] /EPI
[2018-10-06 10:02] LABS: HEMATOCRIT 26.2 % (42.0-52.0); HEMOGLOBIN 9.1 gm/dL (14.0-18.0); MCH 30.5 pg (26.0-34.0); MCHC 34.7 g/dL (28.0-37.0); MCV 87.8 fL (80.0-100.0); RBC 2.98 mil/uL (4.50-6.00); RDW 12.9 % (10.5-14.5)
[2018-10-06 10:10] LABS: CALCIUM 8.9 mg/dL (8.5-10.1); CREATININE 0.7 mg/dL (0.7-1.3); POTASSIUM 3.7 mmol/L (3.5-5.1)
--- NOTE | 2018-10-06 19:14 | NUR ---
ASSUMED CARE OF PT AT 0645. CCU TX ORDERS. SHOWER WITH OT. MAYBE DC HOME TMRO. PRN PAIN PILLS. ANDREA DIET. PROGRESSING OTOWARD PLAN OF CARE.
[2018-10-07] VITALS (10 sets, daily range): BP systolic 126–157; BP diastolic 49–91
[2018-10-07 05:29] LABS: HEMATOCRIT 23.2 % (42.0-52.0); MCH 30.7 pg (26.0-34.0); MCHC 34.6 g/dL (28.0-37.0); MCV 88.6 fL (80.0-100.0); RBC 2.62 mil/uL (4.50-6.00); RDW 12.8 % (10.5-14.5)
[2018-10-07 05:38] LABS: CALCIUM 8.6 mg/dL (8.5-10.1); CREATININE 0.7 mg/dL (0.7-1.3); POTASSIUM 4.2 mmol/L (3.5-5.1)
--- NOTE | 2018-10-07 06:34 | NUR ---
PATIENT REMAINED STABLE THROUGHOUT THE NIGHT AND NO ACUTE EVENTS OCCURRED. PATIENT UPDATED ON CARE PLAN AND ALL QUESTIONS WERE ANSWERED. PATIENT PROGRESSING TOWARDS THE PLAN OF CARE.
[2018-10-07] MEDS ORDERED: PACERONE 200 M200 M1 PO (08:24)
--- NOTE | 2018-10-07 08:34 | EKG ---
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 : 1950 Requested By: Santiago Shetty Order Number: [id number] MD: Anthony Bay Measurements Intervals [place] Rate: 76 P: 63 HI: 174 QRS: 50 QRSD: 113 T: 128 QT: 404 QTc: 455 Interpretive Statements Sinus rhythm Borderline intraventricular conduction delay Nonspecific T abnrm, anterolateral leads Compared to ECG 10/06/2018 08:36:40 Myocardial infarct finding no longer present Electronically Signed On 10-07-2018 8:34:29 CDT by Anthony Bay [email or web address] ��������������������������������������������� <ELECTRONICALLY SIGNED> ���������������������������������������� By: Anthony Bay MD ��������������������������������������������� 10/07/1834 4 4 Anthony Bay MD /ANDREW
[2018-10-07] MEDS ORDERED: METFORMIN HCL500 MG PO (09:47)
--- NOTE | 2018-10-07 15:56 | NUR ---
ASSUMED CARE OF PT. AT 0700. PT. IS ALERT AND ORIENTED X4. PLEASANT AND COPPERATIVE. ASSESSMENTS AND VITAL SIGNS DOCUMENTED. BM THIS AM. TRANSFERRED TO CHAIR AND STAYED THERE MOST AM. STILL A LITTLE ANXIOUS ABOUT GOING HOME, WANTS TO BUILD UP MORE STRENGTH. PT. TRANSFERRED TO CCU, REPORT GIVEN TO LISA, ALL BELONGINGS WITH PATIENT, PT. TOLERATED TRANSFER.
--- NOTE | 2018-10-07 17:31 | NUR ---
PT TRANSFERED FROM ICU. ALERT AND ORIENTED. VSS. RECEIVED PRN PAIN MED WITH PARTIAL RELIEF. KHAI DRESSING REENFORCED. WILL CONTINUE TO MONITOR.
[2018-10-08 04:17] LABS: HEMATOCRIT 22.5 % (42.0-52.0); HEMOGLOBIN 7.8 gm/dL (14.0-18.0); MCH 30.4 pg (26.0-34.0); MCHC 34.7 g/dL (28.0-37.0); MCV 87.7 fL (80.0-100.0); RBC 2.56 mil/uL (4.50-6.00); RDW 12.7 % (10.5-14.5)
--- NOTE | 2018-10-08 04:30 | NUR ---
ASSESSMENTS CHARTED. POST OP DAY 4. UP AT CARLOS. HAD BOWEL MOVEMENT. UP AT [facility] IN ROOM. PLAN OF CARE TO CONTINUE STRENGTHENING.
[2018-10-08 05:32] VITALS: BP 137/67
[2018-10-08 07:42] VITALS: BP 133/68
--- NOTE | 2018-10-08 08:52 | EKG ---
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 : 1950 Requested By: Rocael Garcia Order Number: [id number] MD: Anthony Bay Measurements Intervals [place] Rate: 78 P: 75 FL: 173 QRS: 56 QRSD: 106 T: QT: 548 QTc: 625 Interpretive Statements Sinus rhythm Nonspecific T abnormalities, diffuse leads Compared to ECG 10/07/2018 07:35:25 T-wave abnormality now present Electronically Signed On 10-08-2018 8:52:23 CDT by Anthony Bay [email or web address] ��������������������������������������������� <ELECTRONICALLY SIGNED> ���������������������������������������� By: Anthony Bay MD ��������������������������������������������� 10/08/18 0852 5 5 Anthony Bay MD /ANDREW
[2018-10-08] MEDS ORDERED: METFORMIN HCL500 MG PO (11:49)
[2018-10-08] MEDS ORDERED: TOPROL XL25 MG PO (11:53)
[2018-10-08] MEDS ORDERED: NORCO 5-325 TA1 EACH PO (11:53)
[2018-10-08] MEDS ORDERED: MIRALAX17 GM PO (11:53)
[2018-10-08] MEDS ORDERED: COLACE100 MG PO (11:53)
[2018-10-08] MEDS ORDERED: IRON325 PO (11:53)
[2018-10-08 12:17] VITALS: BP 133/68
--- NOTE | 2018-10-08 12:34 | NUR ---
ASSESSMENT COMPLETED. PT ALERT AND ORIENTED. VSS. RECEIVED PRN PAIN MED WITH PARTIAL RELIEF. STERNUM KHAI DRESSING C/D/I. STERNUM PRECAUTION ENFORCED. ORDERS GIVEN TO DISCHARGE PT TO HOME. DISCHARGE INSTRUCTIONS GIVEN TO PT. PT VERBERLIZE UNDERSTANDING. PT LEFT THE FACILITY ACCOMPANIED BY THE .
== END 2018-10-08 12:25 | disposition home or self-care (01) | DRG 233 ==
LOC: ER 02:08 → 2N 04:20 → EROBS 04:20 → 2N 05:08 → ICU 10-03 13:58 → 2N 10-07 15:18 → ENTRNSPT 10-08 12:19 → EDTRNSPTSTS 10-08 12:21 → 2N 10-08 12:25
PROVIDERS: Emergency Medicine; Hospitalist; Internal Medicine Cardiovascular Disease; Nurse Practitioner Adult Health; Nurse Practitioner Family; Physician Assistant; Surgery Vascular Surgery; ADMIT Internal Medicine
PROC: B211YZZ Fluoroscopy of Multiple Coronary Arteries using Other Contrast (ICD-10-PCS; principal; 2018-10-02)
PROC: 4A023N7 Measurement of Cardiac Sampling and Pressure, Left Heart, Percutaneous Approach (ICD-10-PCS; principal; 2018-10-02)
PROC: B215YZZ Fluoroscopy of Left Heart using Other Contrast (ICD-10-PCS; principal; 2018-10-02)
PROC: 5A1221Z Performance of Cardiac Output, Continuous (ICD-10-PCS; 2018-10-03)
PROC: 021109W Bypass Coronary Artery, Two Arteries from Aorta with Autologous Venous Tissue, Open Approach (ICD-10-PCS; 2018-10-03)
PROC: 02100Z9 Bypass Coronary Artery, One Artery from Left Internal Mammary, Open Approach (ICD-10-PCS; 2018-10-03)
PROC: 06BQ4ZZ Excision of Left Saphenous Vein, Percutaneous Endoscopic Approach (ICD-10-PCS; 2018-10-03)
PROC: 30233M1 Transfusion of Nonautologous Plasma Cryoprecipitate into Peripheral Vein, Percutaneous Approach (ICD-10-PCS; 2018-10-03)
DX: I21.4 Non-ST elevation (NSTEMI) myocardial infarction (principal); I50.33 Acute on chronic diastolic (congestive) heart failure; I48.0 Paroxysmal atrial fibrillation; E87.6 Hypokalemia; E83.42 Hypomagnesemia; K21.9 Gastro-esophageal reflux disease without esophagitis; I25.10 Atherosclerotic heart disease of native coronary artery without angina pectoris; I25.5 Ischemic cardiomyopathy; D50.0 Iron deficiency anemia secondary to blood loss (chronic); E11.9 Type 2 diabetes mellitus without complications; E03.9 Hypothyroidism, unspecified; D72.829 Elevated white blood cell count, unspecified; E78.5 Hyperlipidemia, unspecified; I11.0 Hypertensive heart disease with heart failure; Z95.5 Presence of coronary angioplasty implant and graft; Z79.899 Other long term (current) drug therapy; Z91.041 Radiographic dye allergy status; Z82.49 Family history of ischemic heart disease and other diseases of the circulatory system; Z79.82 Long term (current) use of aspirin
CPT/HCPCS: 10078; 10081; 47000; 47001; 47002; 47297; 48888; 50010; 50011; 50249; 50409; 50456; 50498; 50668; 51301; 52131; 52259; 52314; 53327; 53358; 54118; 56455; 56524; 56525; 56526; 56527; 56528; 56531; 56534; 56668; 56760; 56898; 57093; 57115; 62110; 62950; 65003; 65020; 65047; 65130; 65135; 83006

== ENCOUNTER → 2020-05-09 | Outpatient (CLI) | payer OTHER, MEDICARE ==
[~2020-05-09] MED LIST changes: +COLACE100 MG PO; +COZAAR 25 MG TA25 M1 PO; +FISH OIL 1,001000 M2 PO; +IRON325 PO; +JARDIANCE10 MG PO; +LOSARTAN-HCTZ1 EACH PO; +METFORMIN HCL500 MG PO; +MIRALAX17 GM PO; +MOVE FREE ULTR1 EAC2 PO; +MULTAQ 400 MG400 MG PO; +MULTAQ400 MG PO; +NORCO 5-325 TA1 EACH PO; +PACERONE 200 M200 M1 PO; +PRADAXA150 MG PO; +RANEXA500 MG PO; +TOPROL XL25 MG PO
== END ==
LOC: SJCVCIMAG 11:19 → SJCVC 11:19
PROVIDERS: ATTEND Internal Medicine Cardiovascular Disease
DX: I08.1 Rheumatic disorders of both mitral and tricuspid valves (principal); I11.9 Hypertensive heart disease without heart failure; I25.10 Atherosclerotic heart disease of native coronary artery without angina pectoris; I48.0 Paroxysmal atrial fibrillation; E78.00 Pure hypercholesterolemia, unspecified; E78.1 Pure hyperglyceridemia; E11.9 Type 2 diabetes mellitus without complications; Z95.1 Presence of aortocoronary bypass graft; Z79.899 Other long term (current) drug therapy

== ENCOUNTER → 2020-05-18 | Outpatient (CLI) | payer OTHER, MEDICARE ==
[2020-05-18 10:11] LABS: ABSOLUTE NEUTROPHILS 5.3 thou/uL (1.4-8.2); BASOPHILS 0.3 % (0.0-2.0); EOSINOPHILS 1.8 % (0.0-3.0); HEMATOCRIT 44.3 % (42.0-52.0); HEMOGLOBIN 14.5 gm/dL (14.0-18.0); LYMPHOCYTES 27.5 % (24.0-44.0); MCH 29.8 pg (26.0-34.0); MCHC 32.8 g/dL (28.0-37.0); MCV 90.8 fL (80.0-100.0); MONOCYTES 8.7 % (1.0-8.0); PLATELET COUNT 177 thou/uL (150-400); POLYS 61.7 % (36.0-66.0); RBC 4.88 mil/uL (4.50-6.00); RDW 13.2 % (10.5-14.5); WBC 8.6 thou/uL (4.0-11.0)
[2020-05-18 10:48] LABS: ALBUMIN 4.3 g/dL (3.4-5.0); CALCIUM 9.1 mg/dL (8.5-10.1); CREATININE 1.1 mg/dL (0.7-1.3); POTASSIUM 4.4 mmol/L (3.5-5.1); TOTAL BILIRUBIN 0.8 mg/dL (0.2-1.0); TOTAL PROTEIN 6.8 g/dL (6.4-8.2)
== END ==
LOC: CAT 09:19
PROVIDERS: ATTEND Internal Medicine Cardiovascular Disease
DX: I25.10 Atherosclerotic heart disease of native coronary artery without angina pectoris (principal); I48.91 Unspecified atrial fibrillation

== ENCOUNTER → 2020-05-18 | Outpatient (CLI) | payer OTHER, MEDICARE | LOC: LAB 09:00 | PROVIDERS: ATTEND Internal Medicine Cardiovascular Disease | DX: Z01.812 Encounter for preprocedural laboratory examination (principal); Z20.828 Contact with and (suspected) exposure to other viral communicable diseases ==

== ENCOUNTER 2020-05-19 06:32 | Outpatient (CLI) | payer OTHER, MEDICARE ==
[~2020-05-19] VITALS: Ht 195.6 cm; Wt 91.4 kg
[~2020-05-19 06:32] MED LIST changes: -COZAAR 25 MG TA25 M1 PO; -FISH OIL 1,001000 M2 PO; -JARDIANCE10 MG PO; -MOVE FREE ULTR1 EAC2 PO; -MULTAQ400 MG PO
[2020-05-19 07:10] VITALS: BP 163/85
[2020-05-19 07:35] LABS: BASOPHILS 0.4 % (0.0-2.0); HEMATOCRIT 44.7 % (42.0-52.0); HEMOGLOBIN 14.8 gm/dL (14.0-18.0); MCH 29.9 pg (26.0-34.0); MCHC 33.1 g/dL (28.0-37.0); MCV 90.3 fL (80.0-100.0); MONOCYTES 7.5 % (1.0-8.0); PLATELET COUNT 210 thou/uL (150-400); POLYS 76.1 % (36.0-66.0); RBC 4.95 mil/uL (4.50-6.00); RDW 13.3 % (10.5-14.5); WBC 15.8 thou/uL (4.0-11.0)
[2020-05-19 07:53] LABS: CALCIUM 9.3 mg/dL (8.5-10.1); CREATININE 1.2 mg/dL (0.7-1.3); POTASSIUM 3.8 mmol/L (3.5-5.1)
[2020-05-19 07:56] LABS: ALBUMIN 4.5 g/dL (3.4-5.0); TOTAL BILIRUBIN 0.9 mg/dL (0.2-1.0); TOTAL PROTEIN 7.8 g/dL (6.4-8.2)
[2020-05-19 07:58] LABS: APTT 30.1 Seconds (24.5-32.8); INR 1.2
[2020-05-19] MEDS ORDERED: COZAAR 25 MG TA25 M1 PO (09:01)
[2020-05-19] MEDS ORDERED: JARDIANCE10 MG PO (09:31)
[2020-05-19] MEDS ORDERED: MULTAQ400 MG PO (09:35)
[2020-05-19] MEDS ORDERED: FISH OIL 1,001000 M2 PO (09:36)
[2020-05-19] MEDS ORDERED: MOVE FREE ULTR1 EAC2 PO (09:38)
[2020-05-19 20:00] VITALS: BP 139/85
--- NOTE | 2020-05-19 20:13 | NUR ---
PT TO THE UNIT POST ABLATION - ORIENTED TO ROOM AND BEDSPACE. GROIN SITE WITH BLOOD DRAINAGE PRESENT FROM PACU - NO FURTHER DRAINAGE NOTED. PT SITTING UP IN BED - MOVING ABOUT GROIN SITE REMIANS STABLE. NO CO'S OF PAIN OR NAUSEA. ANDREA DIET AND FLUIDS. NO CO'S AT THE PRESENT TIME.
[2020-05-20] VITALS: BP 137/80
[2020-05-20 03:30] VITALS: BP 141/76
--- NOTE | 2020-05-20 08:14 | NUR ---
ASSESSMENT CHARTED, MEDS CHARTED GIVEN. PATIENT OFF BED REST AT START OF SHIFT. RIGHT GROIN SITE BANDAGE IS BLOOD SOAKED WITH OLD BLOOD. DRESSING WAS CHANGED, AND REMAINED DRY DURING SHIFT. PATIENT NOT MOVING MUCH DURING SHIFT. TRUJILLO WAS REMOVED NEAR START OF SHIFT. PATIENT USING URINAL. PLAN OF CARE IS TO RETURN HOME THIS AM. DENIED PAIN
[2020-05-20 09:59] VITALS: BP 141/76
--- NOTE | 2020-05-20 10:29 | NUR ---
ASSESSMENT CHARTED - MEDS PER MAR - UP AD CARLOS IN ROOM -STEADY ON FEET. ANDREA DIET AND FLUIDS. GROIN OPEN TO AIR - CLEAN AND DRY. SEEN BY CHILLING HOOD OPERATOR AND DOCTOR - ORDERS TO D/C. INSTRUCTION RE HOME CARE / MEDS AND FOLLOW UP GIVEN TO PATIENT - STATED UNDERSTANDING OF INSTRUCTION GIVEN. PT LEFT UNIT AMUBLATORY ACCOMPANIED BY NURSE - HOME VIA PVT VEHICLE WITH - MONITOR AND IV REMOVED PRIOR TO D/C. NO CO'S TIME AT DISCHARGE.
--- NOTE | 2020-05-20 12:05 | P ---
[facility] [address] [place] [address] PROCEDURE REPORT Name: ANTWAN SERRANO [id number] Admission: 05/19/20 Attend Phys: Anthony Bay MD Discharge: 05/20/20 Date of : 54 Report #: [id number] THIS REPORT FOR: cc: Juan Aguilar,Juan Francois,Anthony Radford MD ~ CC: Juan Bay DATE OF SERVICE: 05/19/2020 PREOPERATIVE DIAGNOSIS: Atrial fibrillation. POSTOPERATIVE DIAGNOSIS: Atrial fibrillation. HISTORY: The patient yarely is a 69-year-old with history of coronary artery disease, status post CABG as well as atrial fibrillation, here for AFib ablation. PROCEDURES PERFORMED: 1. Atrial fibrillation ablation, CPT code 65789. 2. 3D mapping, CPT code 57513. 3. Intracardiac echo, CPT code 81935. 4. Focal ablation, CPT code 47457. ANESTHESIA: The patient underwent general anesthesia with no anesthesia related complications. DESCRIPTION OF PROCEDURE: The patient underwent informed consent. We discussed the details of the procedure including the risks, which include but not limited to bleeding, vascular damage, stroke, TN as well as cardiac perforation. He understood these risks and is willing to proceed. The patient was brought to EP laboratory in fasting and sedated state, prepped and draped in a sterile fashion. I obtained access to the right femoral vein x 3, placing 8, 9 and 7-Uzbek short sheath using the modified Seldinger technique. Next, under fluoroscopy, decapolar catheter was placed into the coronary sinus and an ICE catheter was placed in the right atrium. Intracardiac ultrasound revealed that the patient had a nice thin interatrial septum, 2 left and 2 right pulmonary veins. The CartoSound images were merged with the cardiac CT scan and the patient was systemically heparinized and a transseptal was performed using an SL1 sheath and [place] needle. I then exchanged for the cryo sheath and placed this into the left atrium. I placed a Lasso catheter in the left atrium and created a detailed 3D voltage map of the left atrium. At baseline, the patient was in atrial fibrillation with a bradycardic ventricular response in the 40s-50s. Next, I started by isolating the left superior [facility] [address] [place] [address] [facility]: [facility] Robert#: [id number] Admission: 05/19/20 Attend Phys: Anthony Bay MD Discharge: 05/20/20 Date of : 54 Report #: [id number] pulmonary vein, which I was not able to isolate despite several freezes. I performed two 4-minute freezes, a 90-second freeze and a 120-second freeze followed by a 180-second freeze trying to subsegment this superior branch, and although it did demonstrate significant slowing, it did not result in isolation. Therefore, I went to the left inferior pulmonary vein and performed a 4-minute freeze, which resulted in isolation in 53 seconds, and then when I re-interrogated the left superior pulmonary vein, it was now isolated. I then turned my attention to the right superior pulmonary vein and performed a 4-minute, followed by a 3-minute freeze. The vein isolated during the second freeze within 22 seconds. The right inferior pulmonary vein underwent a 4-minute, followed by a 3-minute freeze and isolated during the second freeze within 38 seconds. Given that the patient had extensive atrial fibrosis along the posterior wall, I decided to perform a posterior roofline. I performed 4 freezes anchored from the left superior pulmonary vein, each freeze was of 4 minutes' duration. Next, the patient underwent DC cardioversion with voodoo of sinus rhythm and a repeat voltage map was performed showing wide circumferential ablation of the pulmonary veins and isolation of the posterior roof region. Next, a basic EP study was performed. The patient was in sinus rhythm with a sinus cycle length of 1010 milliseconds, KS interval 207 milliseconds, QRS duration 120 milliseconds, QT interval 445 milliseconds, AH interval 125 milliseconds, and HV interval of 59 milliseconds. Atrial burst pacing was performed and AV block was noted at 570 milliseconds. Aggressive atrial burst pacing was performed down to 220 milliseconds and this resulted in atrial fibrillation, which underwent 200 joule cardioversion. We did not induce any typical or atypical flutters. As such, the procedure was concluded. The patient received systemic protamine once ACT was within acceptable range, catheters and sheaths were pulled. Hemostasis was obtained. Post-ablation, there was no evidence of pericardial effusion based on intracardiac ultrasound. CONCLUSIONS: 1. Successful AFib ablation with isolation of the pulmonary veins. 2. Successful creation of a posterior roofline. <ELECTRONICALLY SIGNED> By: Anthony Bay MD 05/20/20 1205 1122 0450 Anthony Bay MD /nt
== END 2020-05-20 10:20 | disposition home or self-care (01) ==
LOC: CATH 06:32 → 2N 07:04 → CATH 09:20
PROVIDERS: ATTEND Internal Medicine Cardiovascular Disease
DX: I48.91 Unspecified atrial fibrillation (principal); I25.10 Atherosclerotic heart disease of native coronary artery without angina pectoris; Z95.1 Presence of aortocoronary bypass graft; Z98.890 Other specified postprocedural states; Z79.82 Long term (current) use of aspirin; Z79.899 Other long term (current) drug therapy; Z91.041 Radiographic dye allergy status; Z88.8 Allergy status to other drugs, medicaments and biological substances; Z79.01 Long term (current) use of anticoagulants
CPT/HCPCS: 10797; 62110; 62900; 65020; 65040; 70005

== ENCOUNTER → 2020-06-08 | Outpatient (CLI) | payer OTHER, MEDICARE ==
[~2020-06-08] MED LIST changes: +COZAAR 25 MG TA25 M1 PO; +FISH OIL 1,001000 M2 PO; +JARDIANCE10 MG PO; +MOVE FREE ULTR1 EAC2 PO; +MULTAQ400 MG PO
== END ==
LOC: LAB 08:51
PROVIDERS: ATTEND Internal Medicine Cardiovascular Disease
DX: Z01.812 Encounter for preprocedural laboratory examination (principal); Z20.828 Contact with and (suspected) exposure to other viral communicable diseases

== ENCOUNTER → 2020-06-13 | Outpatient (CLI) | payer OTHER, MEDICARE ==
[~2020-06-13] VITALS: Ht 195.6 cm; Wt 88.5 kg
--- NOTE | ~2020-06-13 | P ---
[facility] [place] [address] [place] [address] PROCEDURE REPORT Name: ANTWAN SERRANO [facility] [id number] Admission: 06/13/20 Attend Phys: Anthony Bay MD Discharge: Date of : 54 Report #: [id number] THIS REPORT FOR: cc: Juan Aguilar,Anthony Rosen MD ~ CC: Juan Bay DATE OF SERVICE: 06/13/2020 PROCEDURE: Cardioversion. PREOPERATIVE DIAGNOSIS: Atrial flutter. POSTOPERATIVE DIAGNOSIS: Atrial flutter. DESCRIPTION OF PROCEDURE: The patient underwent informed consent. He was prepped in a standard fashion. The patient was sedated by anesthesiology service. Once sedated, underwent a 200 joule synchronized cardioversion with gnosticism of sinus rhythm. There were no procedure related complications. CONCLUSIONS: Successful DC cardioversion with gnosticism of sinus rhythm. By: 0942 1034 Anthony Bay MD /nt
[2020-06-13 07:46] VITALS: BP 178/109
[2020-06-13 07:54] LABS: BASOPHILS 0.5 % (0.0-2.0); EOSINOPHILS 2.2 % (0.0-3.0); HEMATOCRIT 45.6 % (42.0-52.0); HEMOGLOBIN 15.6 gm/dL (14.0-18.0); MCH 30.1 pg (26.0-34.0); MCHC 34.3 g/dL (28.0-37.0); MCV 87.8 fL (80.0-100.0); MONOCYTES 7.9 % (1.0-8.0); PLATELET COUNT 216 thou/uL (150-400); POLYS 54.4 % (36.0-66.0); RBC 5.19 mil/uL (4.50-6.00); RDW 13.2 % (10.5-14.5); WBC 7.4 thou/uL (4.0-11.0)
[2020-06-13 08:05] LABS: CALCIUM 9.5 mg/dL (8.5-10.1); CREATININE 0.9 mg/dL (0.7-1.3); POTASSIUM 3.9 mmol/L (3.5-5.1)
[2020-06-13 08:12] LABS: ALBUMIN 4.3 g/dL (3.4-5.0); TOTAL BILIRUBIN 0.6 mg/dL (0.2-1.0); TOTAL PROTEIN 7.3 g/dL (6.4-8.2)
--- NOTE | 2020-06-13 08:29 | NUR ---
CARDIOVERSION COMPLETED, PT IN NSR. ANESTHESIOLOGY IN ROOM. PT TOLERATED PROCEDURE WELL.
[2020-06-13 08:48] LABS: INR 1.2; PROTIME 12.8 Seconds (9.3-11.4)
[2020-06-13 08:50] LABS: APTT 44.9 Seconds (24.5-32.8)
--- NOTE | 2020-06-13 08:52 | NUR ---
PT SITTING UP TALKING WITH AND THIS NURSE. NO VOICED COMPLAINTS. TAKING SIPS OF WATER WITHOUT DIFFICULTIES. VSS
== END | disposition home or self-care (01) ==
LOC: CATH 06:32
PROVIDERS: ATTEND Internal Medicine Cardiovascular Disease
DX: I48.92 Unspecified atrial flutter (principal); I48.91 Unspecified atrial fibrillation; I10 Essential (primary) hypertension; I25.10 Atherosclerotic heart disease of native coronary artery without angina pectoris; E78.00 Pure hypercholesterolemia, unspecified; E11.9 Type 2 diabetes mellitus without complications; Z98.890 Other specified postprocedural states; Z79.899 Other long term (current) drug therapy; Z79.82 Long term (current) use of aspirin; Z91.041 Radiographic dye allergy status; Z79.01 Long term (current) use of anticoagulants
CPT/HCPCS: 62110; 62900

== ENCOUNTER → 2020-06-29 | Outpatient (CLI) | payer OTHER, MEDICARE | LOC: SJCVC 15:29 | PROVIDERS: ATTEND Internal Medicine Cardiovascular Disease | DX: I48.0 Paroxysmal atrial fibrillation (principal); I25.10 Atherosclerotic heart disease of native coronary artery without angina pectoris; I10 Essential (primary) hypertension; E11.9 Type 2 diabetes mellitus without complications; Z79.82 Long term (current) use of aspirin; Z79.899 Other long term (current) drug therapy ==

== ENCOUNTER → 2020-08-18 | Outpatient (CLI) | payer OTHER, MEDICARE | LOC: SJCVC 13:27 | PROVIDERS: ATTEND Internal Medicine Cardiovascular Disease | DX: I48.91 Unspecified atrial fibrillation (principal); I25.10 Atherosclerotic heart disease of native coronary artery without angina pectoris; I10 Essential (primary) hypertension; E11.9 Type 2 diabetes mellitus without complications; K21.9 Gastro-esophageal reflux disease without esophagitis; Z95.1 Presence of aortocoronary bypass graft; Z98.890 Other specified postprocedural states; Z88.8 Allergy status to other drugs, medicaments and biological substances; Z79.82 Long term (current) use of aspirin; Z79.899 Other long term (current) drug therapy; Z82.49 Family history of ischemic heart disease and other diseases of the circulatory system ==

== ENCOUNTER → 2020-11-22 | Outpatient (CLI) | payer OTHER, MEDICARE | LOC: SJCVC 11:12 | PROVIDERS: ATTEND Internal Medicine Cardiovascular Disease | DX: I48.0 Paroxysmal atrial fibrillation (principal); I48.3 Typical atrial flutter; I25.10 Atherosclerotic heart disease of native coronary artery without angina pectoris; K21.9 Gastro-esophageal reflux disease without esophagitis; I10 Essential (primary) hypertension; E11.9 Type 2 diabetes mellitus without complications; Z82.49 Family history of ischemic heart disease and other diseases of the circulatory system; Z79.82 Long term (current) use of aspirin; Z79.899 Other long term (current) drug therapy; Z88.8 Allergy status to other drugs, medicaments and biological substances; Z72.89 Other problems related to lifestyle ==

== ENCOUNTER → 2021-05-30 | Outpatient (CLI) | payer OTHER, MEDICARE | LOC: SJCVC 09:38 | PROVIDERS: ATTEND Internal Medicine Cardiovascular Disease | DX: I45.19 Other right bundle-branch block (principal); R94.31 Abnormal electrocardiogram [ECG] [EKG]; I11.9 Hypertensive heart disease without heart failure; I48.0 Paroxysmal atrial fibrillation; I25.810 Atherosclerosis of coronary artery bypass graft(s) without angina pectoris; E11.9 Type 2 diabetes mellitus without complications; Z88.1 Allergy status to other antibiotic agents; Z79.82 Long term (current) use of aspirin; Z79.899 Other long term (current) drug therapy; Z72.89 Other problems related to lifestyle; Z98.890 Other specified postprocedural states ==

== ENCOUNTER → 2021-06-07 | Outpatient (CLI) | payer OTHER, MEDICARE | LOC: SJCVCIMAG 05-17 16:16 | PROVIDERS: ATTEND Internal Medicine Cardiovascular Disease | DX: I25.10 Atherosclerotic heart disease of native coronary artery without angina pectoris (principal); R94.31 Abnormal electrocardiogram [ECG] [EKG]; I48.91 Unspecified atrial fibrillation; Z98.61 Coronary angioplasty status ==